=== PATIENT | female | born 1990 | race Caucasian/White ===

== ENCOUNTER 2024-09-12 21:24 | Emergency (ER) | payer BC, SELFPAY ==
[2024-09-12 21:25] VITALS: BP 107/69; PULSE 76; RESP 14; TEMP 37.1; O2SAT 98
--- NOTE | 2024-09-12 22:00 | DI.US_ITS ---
Exam(s) US OB 1ST TRIMESTER EXAM: US OB 1ST TRIMESTER CLINICAL HISTORY: bleeding, pain. COMPARISON: No exams were available for comparison TECHNIQUE: Transabdominal Transvaginal first trimester obstetrical ultrasound performed. FINDINGS: Sonographic images demonstrate a single intrauterine gestational sac. The uterus measures 6.3 x 4.1 x 5.4 cm. The cervix appears normal. A pole is seen. No yolk sac is seen. Sonographically assessed gestational age based upon crown-rump length of 0.3 cm is: 6 weeks 0 days Estimated date of delivery based on this ultrasound is: 08 May 2025 Estimated date of delivery based upon LMP: 01 May 2025 heart rate motion is not detected. Subchorionic hemorrhage measuring 1.5 x 0.6 x 1.7 cm. No free fluid identified. Corpus luteum cyst right ovary. Left ovary was not visualized. Prior oophorectomy according to meghana ent. IMPRESSION: Intrauterine gestational sac with pole. No visible cardiac activity which could be secondary t o early age. No visible yolk sac which should be present at this time. Small subchorionic hemorrhag e. DATA REPOSITORY:
--- NOTE | 2024-09-12 22:06 | W.ED.GENAD ---
Discharge Plan Disposition Patient Disposition: Home Condition: Stable Discharge Details Clinical Impression: Threatened miscarriage, Subchorionic bleed Primary Care Provider: Unknown,Unknown ED Provider: Edna Keita Home Meds and New Rx's Prescriptions: No Action docosahexaenoic acid [ DHA] 1 cap PO DAILY Discharge Instructions Instructions: Subchorionic Bleeding, Bleeding in Early ED Additional Instructions: Please return to the emergency department on Sunday evening for repeat blood work however return sooner with any worsening symptoms or any other concerns and please follow-up also with your pathology manager in [place]. HPI General Date/Time Provider Initiated Documentation: 09/12/24 21:30. HPI Narrative: The patient is a 33-year-old female without any significant past medical history at , 7 weeks into her current who comes to the emergency department for vaginal spotting. The patient reports that when she wiped the toilet paper yesterday she noticed pink in the toilet paper. Reports since then she has been spotting with wiping and this evening when she urinated there were clots in the toilet. Reports that she has had an ultrasound study at her OB clinic in [place] where she resides and was found to have a single intrauterine . Reports that she and her are visiting from out of town and did not plan on returning back home until the beginning of September. Reports they tried calling her OB office and nobody called back. Reports that a week ago she was having some cramping on the right side but she has no cramping today. Reports her first 3 years ago was uncomplicated but she did end up having a because her water broke early. Reports otherwise that she feels well. Denies any flank pain. Denies urinary symptoms. Denies abdominal pain. Denies any nausea or vomiting. Denies fevers or chills. Reports her blood type is O- and on her first she required the RhoGAM shot. Related Data Home Medications ?Medication ?Instructions ?Recorded ?Confirmed docosahexaenoic acid 1 cap PO DAILY 09/12/24 09/12/24 Allergies Allergy/AdvReac Type Severity Reaction Status Date / Time No Known Allergies Allergy Verified 09/12/24 21:30 General Stated Complaint: MANAGER CARDIAC CATH EAN: 3 Review of Systems Narrative: Review of systems are negative except as mentioned. Constitutional Constitutional: Denies fever(s) Cardiovascular Cardiovascular: Denies chest pain and Denies dyspnea Respiratory Respiratory: Denies cough and Denies dyspnea Gastrointestinal Gastrointestinal: Denies abdominal pain, Denies change in stool character and Denies vomiting Genitourinary Genitourinary: Reports abnormal vaginal bleeding, Denies dysuria and Denies urinary urgency Musculoskeletal Comments: No flank pain Exam Const General: no acute distress Orientation: alert, awake and oriented x3 Resp Auscultation: clear to auscultation bilaterally Cardio Rhythm: regular rhythm and abnormal rhythm Other: Equal radial pulses GI Palpation: soft and nontender Auscultation: normal bowel sounds Back/Spine/Pelvis Other: No CVA tenderness is noted to palpation bilaterally Course Vital Signs Vital signs: Vital Signs Temperature 37.1 C 09/12/24 21: Pulse 76 09/12/24 21: Respiratory Rate 14 09/12/24 21:25 Blood Pressure 107/69 09/12/24 21:25 Pulse Oximetry 98 09/12/24 21:25 Temperature 37.1 C 09/12/24 21:25 Pulse 76 09/12/24 21:25 Respiratory Rate 14 09/12/24 21:25 Blood Pressure 107/69 09/12/24 21:25 Pulse Oximetry 98 09/12/24 21:25 Pain Level 0 09/12/24 22:01 Medical Decision Making I had a long conversation with the patient and her regarding her workup. I told the patient and her that typically early on in the with bleeding the test that is more indicative of healthy would be checking her hCG level and repeating this in a couple of days. I told him that getting an ultrasound this evening will likely not be diagnostic since her stage is still quite early. Ultrasound may not show heartbeat just yet but again it is not indicative of viable or not because of the early stage of her . What also complicates the matter is that this is typically not available anymore this time of the evening at this facility nor is it available on the weekend. Ultimately after speaking with the ED staff we were able to call the ultrasound technologist who is willing to come in to do the ultrasound study which again may or may not be a useful diagnostic tool nevertheless the patient and her would like to get this done so this has been ordered. I told him regarding the blood work and they would like to proceed with this and this has been ordered for her also. The patient's ultrasound is done and she is found to have intrauterine with estimated gestational age at 6 weeks and 0 days and a moderate subchorionic hemorrhage. Her blood counts are reassuring. Her urine is negative for infectious process. I did order RhoGAM shot also at this point. I waiting on her hCG quant result. hCG quant is reassuring. At this point is spoke with the patient and her regarding workup result and need for repeat blood work in 2 days. Because she is from out of town and does not have an pathology manager here and because it will be Sunday 1 to 2 days would be I recommended that she return to the emergency department for repeat blood work. The patient and her agreed. In the meantime the lab had called. They detected antibodies on her lab test and are concerned she may have developed allo-immunization. Patient reports that the last time she received RhoGAM was 3 years ago with her last . I did speak with pathology manager on-call here, Dr. Flores. She informs me that this early in the it would be fine if RhoGAM is not administered since the fetus has not yet developed far enough that would be making its own red blood cells. I will therefore hold off on RhoGAM. The patient is to be discharged shortly. She is asked to return here in 2 days for repeat blood work and to follow-up closely also with her pathology manager back in [place]. Imaging Data Radiologic Study: Imaging: Ultrasound (OB US) Radiologist's impression: 1. Intrauterine , EGA 6 weeks 0 days based on crown-rump length measurements. 2. Moderate subchorionic hemorrhage. Quality:SDOH Health Related Social Needs: No Data to Display [facility] All Active Problems (Updated 09/13/24 @ 00:05 by Edna Keita DO) Subchorionic bleed (Acute) Threatened miscarriage (Acute) Social History Smoking/Tobacco Use Status: Never Smoking risk assessment performed?: Yes Alcohol Intake: never Drug use: Never Substance use type: does not use Do you feel safe at home: Yes Do you feel safe in your relationship?: Yes
[2024-09-12 22:55] LABS: Bilirubin Negative (Negative); Blood Moderate (Negative); Clarity Clear (Clear); Glucose Negative (Negative); Ketones Negative (Negative); Leukocyte Esterase Negative (Negative); Nitrite Negative (Negative); Specific Gravity 1.015 (1.005-1.025); Urobilinogen 0.2 mg/dL (Up to 0.2)
[2024-09-12 23:02] LABS: Bacteria Negative HPF (Negative); C & S Indicated? No; Crystals Negative HPF (Negative); Epithelial Cells Many HPF (Negative); Mucus Negative (Negative); WBC Negative HPF (0-5)
[2024-09-12 23:04] LABS: Abs Immature Grans 0.03 10^3/uL (0.0-0.06); Absolute Basophil Count 0.07 10^3/uL (0.0-0.2); Absolute Eosinophil Count 0.17 10^3/uL (0.0-0.7); Absolute Lymphocyte Count 1.78 10^3/uL (1.2-3.4); Absolute Monocyte Count 0.89 10^3/uL (0.1-0.8); Absolute Neutrophil Count 3.63 10^3/uL (1.2-6.7); Basophils % 1.1 %; Eosinophils % 2.6 %; HCT 36.8 % (36.0-46.0); HGB 12.6 g/dL (11.2-15.7); Immature Grans % 0.5 %; Lymphocytes % 27.1 %; MCH 30.4 pg (27.0-33.0); MCHC 34.2 % (32.0-36.0); MCV 89 fL (80-95); MPV 8.9 fL (8.0-11.0); Monocytes % 13.5 %; Neutrophils % 55.2 %; Platelet Count 331 10^3/uL (130-400); RBC 4.14 10^6/uL (3.93-5.22); RDW 12.6 % (11.7-14.6); RDW-SD 40.8 fL; WBC 6.57 10^3/uL (4.4-10.8)
--- NOTE | 2024-09-12 23:21 | DI.VRAD_ITS ---
PROCEDURE INFORMATION: Exam: US First Trimester, Transabdominal and US , Transvaginal Exam date and time: 09/12/2024 10:06 PM Age: 33 years old Clinical indication: Lmp or gestational age (in weeks): 7; Other: Spotting x 2 days; Increased bleeding today; LABS AND CLINICAL REPORTS: Last menstrual period start date: 07/25/2024 Gestational age (Established): 7 w 0 d Estimated due date (Established): 05/01/2025 TECHNIQUE: Imaging protocol: Real-time transabdominal obstetrical ultrasound of the maternal pelvis and a first trimester , less than 14 weeks 0 days, with image documentation. Transvaginal imaging was used for better evaluation of the fetus, adnexa, and/or cervix. COMPARISON: No relevant prior studies available. FINDINGS: GESTATION: Gestation: Intrauterine gestation is visualized. pole is visualized. No yolk sac is visualized. Intrauterine gestational sac. pole with crown rump length of 3 mm. Intrauterine , EGA 6 weeks 0 days based on crown-rump length measurements. Embryo/ cardiac activity (BPM): No cardiac activity yet identified in the pole which is not abnormal at this EGA. Extra-embryonic membranes/Placenta: Subchorionic hematoma measures 1.5 cm x 0.6 cm x 1.65 cm. Moderate subchorionic hemorrhage. Amniotic/Chorionic fluid: Amniotic and extra-amniotic fluid are normal for gestational age. BIOMETRY: Gestational age (AUA): 6 w 0 d Estimated due date (AUA): 05/08/2025 Wagoner rump length (CRL): EGA (CRL) is 6 w 0 d MATERNAL: Uterus: Uterus measures 6.3 cm x 4.1 cm x 5.4 cm. No focal fibroids are seen. Cervix: Normal appearance of the cervix. Right ovary/adnexa: Right ovary measures 2.8 cm x 2 cm x 3 cm. No adnexal masses bilaterally. Normal right ovary. Corpus luteum follicle in the right ovary. Left ovary/adnexa: The left ovary was not seen, possibly due to bowel gas. Intraperitoneal space: No intraperitoneal free fluid. IMPRESSION: 1. Intrauterine , EGA 6 weeks 0 days based on crown-rump length measurements. 2. Moderate subchorionic hemorrhage. Dictated and Authenticated by: Hattie Mckeon MD. Ordering:PARMINDER Bishop MD
[2024-09-12 23:34] LABS: HCG Quant, Pregnancy 17305 mIU/mL (1-3)
== END 2024-09-13 00:23 | disposition home or self-care (01) ==
PROVIDERS: Emergency Provider Emergency Medicine
DX: O20.0 Threatened abortion (principal); O46.90 Antepartum hemorrhage, unspecified, unspecified trimester; O34.81 Maternal care for other abnormalities of pelvic organs, first trimester; N83.11 Corpus luteum cyst of right ovary
CPT/HCPCS: 36415; 86850; 86900; 86901; 99284; 76801; 81003; 81015; 84702; 85025; 86870

== ENCOUNTER 2024-09-14 15:12 | Emergency (ER) | payer BC, SELFPAY ==
[2024-09-14 15:13] VITALS: BP 107/65; PULSE 75; RESP 16; TEMP 36.7; O2SAT 98
--- NOTE | 2024-09-14 15:35 | W.ED.GENAD ---
Discharge Plan Disposition Patient Disposition: Home Condition: Stable Discharge Details Clinical Impression: Threatened miscarriage, Subchorionic bleed Primary Care Provider: Unknown,Unknown ED Provider: Katia Manuel Home Meds and New Rx's Prescriptions: No Action docosahexaenoic acid [ DHA] 1 cap PO DAILY Discharge Instructions Instructions: Threatened Miscarriage (DC) Additional Instructions: You were seen in the emergency department today for evaluation of vaginal bleeding and for rechecking of your hormone. Unfortunately, your hormone has decreased over the last 48 hours, which often happens during a miscarriage. It is safe for you to return home and you did receive the RhoGAM shot today, but you will need to follow-up with your MEMBERSHIP COUNSELOR to discuss next steps in management. They may want to recheck laboratory studies at that time. If you have any concerns, you can call our MEMBERSHIP COUNSELOR clinic at [phone], and can schedule an appointment with their clinic. Reasons to come back to the emergency department include vaginal bleeding that saturates a pad every hour for 2 to 3 hours in a row, abdominal pain that is severe or worsening, fevers or chills, or any other symptoms that cause you concern. Thank you for allowing us to be part of your care. Discharge Data Discharge Date/Time-TO BE ENTERED AT DEPARTURE: 09/14/24 18:20 HPI General Mode of arrival: ambulatory. Date/Time Provider Initiated Documentation: 09/14/24 15:14. Limitations to Documentation: no limitations. Information obtained by: patient, family and old records reviewed. HPI Narrative: HPI: This is a 33-year-old female patient, G2, P1 at an estimated 6 weeks gestation by ultrasound, presenting for evaluation of beta-hCG recheck. The patient was seen at urgent care on the of this month with vaginal spotting and lower abdominal pain, and was noted at that time to have a subchorionic hemorrhage, but reassuring [place] [address]. The patient resides in [place] and is staying up here until the first. They have attempted to get in touch with their MEMBERSHIP COUNSELOR back home, but have not been successful. The patient is blood type O-, and did have a positive antibody screen on type and screen 2 days ago. At that time, MEMBERSHIP COUNSELOR was consulted, and RhoGAM was not recommended. The patient reports that she has had ongoing spotting, minimal lower abdominal tenderness and has not had fevers or chills, nausea or vomiting, dysuria, or other associated symptoms. The patient and her have concerns regarding her positive antibody screen. They request the RhoGAM shot to be administered today, as they are concerned for the patient's ongoing bleeding. They also request to speak to an MEMBERSHIP COUNSELOR doctor as they have not been able to get in touch with theirs as they have questions about the presence of antibodies and effects on later . Exam: Gen: Awake and alert, in no apparent distress HEENT: Non-icteric sclera Neck: Supple Lungs: No apparent respiratory distress, normal respiratory effort. CV: Appears well perfused, heart with regular rate and rhythm, strong distal pulses Abdomen: Non-distended, soft, nontender to palpation without rigidity, rebound, or guarding MSK: Moves 4 extremities without apparent limitation in ROM Skin: Visualized skin without rashes, cyanosis. Neuro: Normal Gait, no obvious focal deficits or facial asymmetry. Speaks in full, clear sentences. Psych: Appropriate for situation. MDM: This is a 33-year-old female patient with a confirmed intrauterine of approximately 6 weeks by ultrasound, presenting for 48-hour beta quant recheck. Differential includes but is not limited to subchorionic hemorrhage, normally progressing , threatened . The patient has not had heavy concerning bleeding, does not have vital sign abnormalities, and had a normal H&H performed 2 days ago the patient and her partner are desiring of RhoGAM at this time, and after discussion with MEMBERSHIP COUNSELOR this is reasonable and we will provide 50 mcg. Beta quant was obtained and in collaboration with the blood bank we also obtained a repeat type and screen as well as antibody testing which will be sent out. ED Course: Beta quant today is decreasing, 15,000 down from 17,000, which is concerning for threatened miscarriage. This was shared with the patient and she had an opportunity to have all questions answered regarding this event. RhoGAM was administered and the results of the antibody testing will be available for her outpatient [facility]SHIP COUNSELOR to follow-up on in the next few days. We also provided her with the phone number for the MEMBERSHIP COUNSELOR clinic here in [place], as she does not return home for another 2 days. She understands return precautions for vaginal bleeding including bleeding that saturates 1 pad per hour for greater than 2 to 3 hours, sudden or severe abdominal pain, fever, etc. At this time, the patient has had a full medical evaluation and is safe for discharge to home. They are hemodynamically stable, ambulatory, and tolerating PO. They are understanding of the follow-up plan and return precautions. They left our facility without incident. Katia Manuel MD Related Data Home Medications ?Medication ?Instructions ?Recorded ?Confirmed docosahexaenoic acid 1 cap PO DAILY 09/12/24 09/14/24 Allergies Allergy/AdvReac Type Severity Reaction Status Date / Time No Known Allergies Allergy Verified 09/14/24 15:16 General Stated Complaint: Recheck EAN: 4 Course Vital Signs Vital signs: Vital Signs Temperature 36.7 C 09/14/24 15:13 Pulse 75 09/14/24 15:13 Respiratory Rate 16 09/14/24 15:13 Blood Pressure 107/65 09/14/24 15:13 Pulse Oximetry 98 09/14/24 15:13 Temperature 36.7 C 09/14/24 15:13 Pulse 75 09/14/24 15:13 Respiratory Rate 16 09/14/24 15:13 Blood Pressure 107/65 09/14/24 15:13 Blood Pressure Position Sitting 09/14/24 15:13 Pulse Oximetry 98 09/14/24 15:13 Oxygen Delivery Method Room Air 09/14/24 15:13 Oxygen Flow Rate 0 09/14/24 15:13 Pain Level 0 09/14/24 15:13 Medical Decision Making Quality:SDOH Health Related Social Needs: No Data to Display PFSH All Active Problems (Updated 09/14/24 @ 17:11 by Katia Manuel MD) Subchorionic bleed (Acute) Threatened miscarriage (Acute) Social History Smoking/Tobacco Use Status: Never Smoking risk assessment performed?: Yes Alcohol Intake: never Drug use: Never Substance use type: does not use Do you feel safe at home: Yes Do you feel safe in your relationship?: Yes
[2024-09-14 16:51] LABS: HCG Quant, Pregnancy 15313 mIU/mL (1-3)
[2024-09-14] MEDS: RHO(D) Immune Globulin 1,500 UNIT Syringe 1500 UNIT IM (18:01)
[2024-09-14 18:13] VITALS: BP 85/43; PULSE 75; RESP 16; TEMP 36.7; O2SAT 98
== END 2024-09-14 18:20 | disposition home or self-care (01) ==
PROVIDERS: Emergency Provider Emergency Medicine
DX: O20.0 Threatened abortion (principal); O46.8X1 Other antepartum hemorrhage, first trimester; Z3A.01 Less than 8 weeks gestation of pregnancy
CPT/HCPCS: 36415; 85461; 86850; 86900; 86901; 90384; 96374; 99284; J2790; 84702; 86870; 86880; 86906; 99283